=== PATIENT | male | born 1995 | race Caucasian/White ===

== ENCOUNTER 2017-04-24 23:27 | Emergency (ER) | payer BC ==
[2017-04-24 23:34] VITALS: BP 141/89
[2017-04-25] MEDS ORDERED: Dexamethasone TAB* 4 MG PO ONE (00:50)
[2017-04-25] MEDS ORDERED: oxyCODONE/Acetamin 5/325 MG* TAB PO ONE (00:50)
[2017-04-25] MEDS ORDERED: Cyclobenzaprine TAB* 10 MG PO ONE (00:50)
--- NOTE | 2017-04-25 01:59 | ED ---
Back Pain - HPI Summary HPI Summary: 21-year-old male presents with back pain for the past day. He denies any injury. He denies any fever. Denies any pain or weakness into his legs. He denies any numbness or tingling. Denies any saddle anesthesia or loss of bowel or bladder. He has been taking ibuprofen without relief. He has history of back pain similar location. He states he has been working out more. He has not seen anyone else for this. He states that with positional changes and makes the pain worse. He admits to muscle spasms. - History of Current Complaint Chief Complaint: EDBackInjuryPain Stated Complaint: BACK INJURY Time Seen by Provider: 04/25/17 00:23 Pain Intensity: 9 - Allergies/Home Medications Allergies/Adverse Reactions: Allergies Allergy/AdvReac Type Severity Reaction Status Date / Time No Known Allergies Allergy Unverified 05/11/12 14:19 PMH/Surg Hx/FS Hx/Imm Hx Endocrine/Hematology History: Denies: Hx Anticoagulant Therapy Cardiovascular History: Denies: Hx Pacemaker/ICD Neurological History: Reports: Other Neuro Impairments/Disorders - RECURRENT CONCUSSIONS, CHANGE IN MENTAL STATUS, UNABLE TO CONCENTRATE Psychiatric History: Denies: Hx Panic Disorder - Surgical History Surgery Procedure, Year, and Place: TESTICULAR HYDROCELE AGE 1 Infectious Disease History: No Infectious Disease History: Denies: Traveled Outside the [place] in Last 30 Days - Family History Known Family History: Positive: Hypertension - Social History Alcohol Use: Rare Substance Use Type: Reports: None Smoking Status (MU): Never Smoked Tobacco Review of Systems Negative: Fever Negative: Chest Pain Negative: Shortness Of Breath Positive: Myalgia - back pain All Other Systems Reviewed And Are Negative: Yes Physical Exam Triage Information Reviewed: Yes Vital Signs On Initial Exam: Initial Vitals Temp Pulse Resp BP Pulse Ox 99.2 F 80 20 141/89 99 04/24/17 23:29 04/24/17 23:29 04/24/17 23:29 04/24/17 23:29 04/24/17 23:29 Vital Signs Reviewed: Yes Appearance: Positive: Pain Distress Skin: Positive: Warm, Dry Head/Face: Positive: Normal Head/Face Inspection Eyes: Positive: Normal, Conjunctiva Clear Respiratory/Lung Sounds: Positive: Clear to Auscultation, Breath Sounds Present Cardiovascular: Positive: Normal, RRR Musculoskeletal: Positive: Limited @ - back, Other - Tenderness lower back, negative straight legs, good pulses, sensation grossly intact Neurological: Positive: Normal Psychiatric: Positive: Normal Diagnostics - Vital Signs Vital Signs Temp Pulse Resp BP Pulse Ox 04/25/17 01:09 16 04/24/17 23:29 99.2 F 80 20 141/89 99 - Laboratory Lab Statement: Any lab studies that have been ordered have been reviewed, and results considered in the medical decision making process. - Radiology back Xray Interpretation: No Acute Changes Radiology Interpretation Completed By: ED Physician Back Pain Course/Dx - Course Course Of Treatment: 21-year-old male presents with back pain for the past day. He denies any injury. He denies any fever. Denies any pain or weakness into his legs. He denies any numbness or tingling. Denies any saddle anesthesia or loss of bowel or bladder. He has been taking ibuprofen without relief. He has history of back pain similar location. He states he has been working out more. He has not seen anyone else for this. He states that with positional changes and makes the pain worse. He admits to muscle spasms. On exam tenderness lower back. Negative straight leg raise. Neurovascularly intact. X-ray read by me as normal. Gave muscle relaxer steroid and Percocet and feeling better here. We'll give muscle relaxer and steroid to go. We'll have follow-up with primary. Patient understands and agrees plan. - Diagnoses Differential Diagnosis/HQI/PQRI: Positive: Herniated Disc, Strain, Sprain Provider Diagnoses: Back pain Discharge - Discharge Plan Condition: Good Disposition: HOME Prescriptions: Cyclobenzaprine TAB* [Flexeril 10 MG TAB*] 10 mg PO TID PRN #21 tab PRN Reason: Pain methylPREDNISolone [Medrol Dosepak 4 MG*] 4 mg PO .SEE STEFANY INSTRUCTION #1 packet Patient Education Materials: Back Pain (ED) Referrals: Will Bryant MD [Primary Care Provider] - [facility] [Outside] Additional Instructions: Follow directions on package for Medrol pack Take muscle relaxers three times a day Use ibuprofen or Tylenol for pain every 6 hours ice/heat area, move as much as possible Follow up with primary Return to ED if develop any new or worsening symptoms
--- NOTE | 2017-04-25 08:00 | RAD ---
HISTORY: Back pain COMPARISONS: None VIEWS: 5 , Frontal, lateral, coned-down lateral sacral, and bilateral oblique views of the lumbar spine. FINDINGS: ALIGNMENT: There is a mild scoliotic curvature of the spine. VERTEBRAL BODIES: There are bilateral pars defects at L5 JOINTS: The facet joints are normal. INTERVERTEBRAL DISCS: The intervertebral disc heights are normal. SOFT TISSUE: Unremarkable. OTHER: The pelvis is unremarkable. The lung bases are clear. IMPRESSION: 1. SPONDYLOLYSIS AT L5 2. MILD SCOLIOSIS.
== END 2017-04-25 02:30 | disposition home or self-care (01) ==
LOC: ED 23:27
DX: M54.9 Dorsalgia, unspecified (principal); M43.00 Spondylolysis, site unspecified
CPT/HCPCS: 72110; 99282; A9270-GY; J8540

== ENCOUNTER → 2018-03-05 20:56 | Emergency (ER) | payer BC, OTHER ==
[~2018-03-05 20:56] MED LIST: Ibuprofen TAB* 800 MG PO ONE; oxyCODONE TAB* 5 MG TAB ONE; oxyCODONE TAB* 5 MG TAB PO ONE
--- NOTE | 2018-03-05 21:55 | ED ---
Lower Extremity - HPI Summary HPI Summary: Patient complains of left ankle pain status post mechanical fall on the ice tonight. States 8/10 pain. Denies any other pain, injury, symptoms. Denies having taken any medications for pain. Denies EtOH, recreational drug use. Medical history is none. - History of Current Complaint Chief Complaint: EDExtremityLower Stated Complaint: LEFT ANKLE INJURY Time Seen by Provider: 03/05/18 21:22 Hx Obtained From: Patient Mechanism Of Injury: Fall From A Standing Position Onset of Pain: Immediate Onset/Duration: Hours Severity Initially: Severe Severity Currently: Severe Pain Intensity: 9 Pain Scale Used: 0-10 Numeric Timing: Constant Location: Is Discrete @ Character Of Pain: Aching, Throbbing Associated Signs And Symptoms: Positive: Swelling Aggravating Factor(s): Standing, Ambulation, Movement, Weight Bearing Alleviating Factor(s): Rest, Elevation Able to Bear Weight: No - Allergies/Home Medications Allergies/Adverse Reactions: Allergies Allergy/AdvReac Type Severity Reaction Status Date / Time No Known Allergies Allergy Verified 03/05/18 21:00 PMH/Surg Hx/FS Hx/Imm Hx Endocrine/Hematology History: Denies: Hx Anticoagulant Therapy Cardiovascular History: Denies: Hx Pacemaker/ICD History: Denies: Hx Dialysis Sensory History: Denies: Hx Eye Prosthesis EENT History: Denies: Hx Deafness Neurological History: Reports: Other Neuro Impairments/Disorders - RECURRENT CONCUSSIONS, CHANGE IN MENTAL STATUS, UNABLE TO CONCENTRATE Denies: Hx Developmental Delay Psychiatric History: Denies: Hx Panic Disorder - Surgical History Surgery Procedure, Year, and Place: TESTICULAR HYDROCELE AGE 1 Infectious Disease History: No Infectious Disease History: Denies: Traveled Outside the [place] in Last 30 Days - Family History Known Family History: Positive: Hypertension - Social History Alcohol Use: Weekly Substance Use Type: Reports: None Smoking Status (MU): Never Smoked Tobacco Review of Systems Constitutional: Negative Eyes: Negative ENT: Negative Cardiovascular: Negative Respiratory: Negative Gastrointestinal: Negative Genitourinary: Negative Musculoskeletal: Other Skin: Negative Neurological: Negative Psychological: Normal All Other Systems Reviewed And Are Negative: Yes Physical Exam - Summary Physical Exam Summary: Swelling and deformity to left ankle laterally and medially. PMS intact distally. No pain with palpation of the foot. Nontender. No pain with palpation of knee. Triage Information Reviewed: Yes Vital Signs On Initial Exam: Initial Vitals Temp Pulse Resp BP Pulse Ox 99 F 86 16 154/92 99 03/05/18 20:58 03/05/18 20:58 03/05/18 20:58 03/05/18 20:58 03/05/18 20:58 Vital Signs Reviewed: Yes Appearance: Positive: Well-Appearing Skin: Positive: Warm Head/Face: Positive: Normal Head/Face Inspection Eyes: Positive: Normal Neck: Positive: Supple Respiratory/Lung Sounds: Positive: Clear to Auscultation Cardiovascular: Positive: Normal Abdomen Description: Positive: Nontender Musculoskeletal: Positive: Normal Neurological: Positive: Normal Psychiatric: Positive: Normal AVPU Assessment: Alert - Alyssa Coma Scale Best Eye Response: 4 - Spontaneous Best Motor Response: 6 - Obeys Commands Best Verbal Response: 5 - Oriented Coma Scale Total: 15 Procedures - Splinting 1 Location: left ankle Hand-Made Type: fiberglass Splint: posterior walking with sugar tong Pre-Proc Neuro Vasc Exam: normal Post-Proc Neuro Vasc Exam: normal Diagnostics - Vital Signs Vital Signs Temp Pulse Resp BP Pulse Ox 03/05/18 20:58 99 F 86 16 154/92 99 - Laboratory Lab Statement: Any lab studies that have been ordered have been reviewed, and results considered in the medical decision making process. Lower Extremity Course/Dx - Course Course Of Treatment: Patient complains of left ankle pain status post mechanical fall on the ice tonight. States 8/10 pain. Denies any other pain, injury, symptoms. Denies having taken any medications for pain. Denies EtOH, recreational drug use. Medical history is none. Physical exam:Swelling and deformity to left ankle laterally and medially. PMS intact distally. No pain with palpation of the foot. Nontender. No pain with palpation of knee. Vital signs within normal limits. X-ray positive for medial malleolus fracture and distal fibular fracture. Posterior walking splint with stirrup applied. Crutches. Rx for hydrocodone. Follow-up with orthopedics. - Diagnoses Provider Diagnoses: Medial malleolar fracture, Fracture of distal end of fibula Discharge - Sign-Out/Discharge Documenting (check all that apply): Patient Departure - Discharge Plan Condition: Stable Disposition: HOME Prescriptions: HYDROcodone/ACETAMIN 5-325 MG* [[place] 5-325 TAB*] 1 tab PO TID 3 Days #9 tab MDD 3 tabs Patient Education Materials: Ankle Fracture (ED) Referrals: Will Bryant MD [Primary Care Provider] - Arturo Rowley MD [Medical Doctor] - Additional Instructions: Take ibuprofen 600 mg up to 4 times a day with prescription pain medication. Rest, ice, elevation. Tomorrow call clinic of orthopedics Dr. Woo to arrange appointment for further evaluation of ankle fracture. Return to the ED for any new or worsening symptoms. - Billing Disposition and Condition Condition: STABLE Disposition: Home
[2018-03-05 22:26] VITALS: BP 139/95
--- NOTE | 2018-03-06 10:29 | PN ---
Progress Note - Progress Note Date of Service: 03/05/18 Note: Pt. seen in ED last night and dx with bimalleolar ankle fx. He was splinted and referred to ortho. Final radiology read today shows a trimalleolar fx. No change in treatment at this time.
== END | disposition home or self-care (01) ==
LOC: ED 20:56
DX: S82.55XA Nondisplaced fracture of medial malleolus of left tibia, initial encounter for closed fracture (principal); S82.832A Other fracture of upper and lower end of left fibula, initial encounter for closed fracture; W00.9XXA Unspecified fall due to ice and snow, initial encounter; Y92.9 Unspecified place or not applicable
CPT/HCPCS: 99282; A9270-GY

== ENCOUNTER 2018-12-11 11:47 | Emergency (ER) | payer BC, OTHER ==
--- OUTSIDE RECORDS SUMMARY | 2018-12-11 11:53 | XMS REPORT | Continuity of Care Document ---
:1995 External Reference #:[id number] Author Name Arturo Rowley MD (transmitted by agent of provider Mohini Tamayo) Address [address] [place] [id number] Care Team Providers Name Role Phone Sammi Ashton MD - Internal Medicine Care Team Information Expense Analyst Problems Active Problems Provider Date Closed trimalleolar fracture Arturo Rowley MD Onset: 03/06/2018 Social History Type Date Description Comments Sex Unknown ETOH Use Currently consumes alcohol 10 drinks/.week Tobacco Use Start: Unknown Chewing tobacco-When stressed Smoking Status Reviewed: 10/13/18 Chewing tobacco-When stressed Allergies, Adverse Reactions, Alerts Description No Known Drug Allergies Medications Active Medications SIG Qnty Indications Ordering Provider Date Escitalopram Oxalate 1/2 tab once 90tabs F41.9 Gaurav Antonio NP 05/24/2018 daily for 1 week 10mg Tablets then increase to 1 tab daily. Ibuprofen Unknown Immunizations Description No Information Available Vital Signs Date Vital Result Comment 10/13/2018 8:47am Height 72 inches 6'0" Weight 220.00 lb Heart Rate 56 /min BP Systolic 124 mmHg BP Diastolic 78 mmHg Body Temperature 97.7 F Pain Level 1 BMI (Body Mass Index) 29.8 kg/m2 06/09/2018 10:12am Height 72 inches 6'0" Weight 220.00 lb Heart Rate 78 /min BP Systolic 120 mmHg BP Diastolic 70 mmHg Respiratory Rate 14 /min Pain Level 0 BMI (Body Mass Index) 29.8 kg/m2 Results Description No Information Available Procedures Description No Information Available Medical Devices Description No Information Available Encounters Type Date Location Provider Dx Diagnosis Office Visit 06/09/2018 Orthopedic Arturo Rowley, S82.852D Displ trimalleol 10:15a [facility] fx l low leg, subs for clos fx w routn heal Office Visit 05/24/2018 [facility]assembly Supervisor Internal Gaurav Antonio NP F41.9 Anxiety disorder , 10:20a Medicine - [facility] unspecified Z13.220 Encounter for screening for lipoid disorders Assessments Date Code Description Provider 10/13/2018 S82.852D Displaced trimalleolar fracture of left lower Arturo Rowley MD leg, subsequen 06/09/2018 S82.852D Displaced trimalleolar fracture of left lower Arturo Rowley MD leg, subsequen 05/24/2018 F41.9 Anxiety disorder, unspecified Gaurav Antonio, KELECHI 05/24/2018 Z13.220 Encounter for screening for lipoid disorders Gaurav Antonio NP 05/15/2018 S82.852D Displaced trimalleolar fracture of left lower Arturo Rowley MD leg, subsequen 05/15/2018 S82.852D Displaced trimalleolar fracture of left lower Arturo Rowley MD leg, subsequent encounter for closed fracture with routine healing 04/18/2018 S82.852D Displaced trimalleolar fracture of left lower Arturo Rowley MD leg, subsequen 04/18/2018 S82.852D Displaced trimalleolar fracture of left lower Arturo Rowley MD leg, subsequent encounter for closed fracture with routine healing Plan of Treatment 10/13/2018 - [facility] Ko82.852D Displaced trimalleolar fracture of left lower leg, subsequenFollow up:As needed Functional Status Description No Information Available Mental Status Description No Information Available Referrals Description No Information Available
[2018-12-11 11:55] VITALS: BP 136/87
--- NOTE | 2018-12-11 12:35 | UC ---
Throat Pain/Nasal [place] HPI - HPI Summary HPI Summary: 23-year-old male presents with 3 day history of sore throat. Reports subjective fever and chills. Had 1 episode of vomiting the first day of symptoms. Denies ear pain, nasal congestion, dysphagia, or cough. - History of Current Complaint Chief Complaint: UCRespiratory Stated Complaint: SORE THROAT Time Seen by Provider: 12/11/18 12:18 Hx Obtained From: Patient Pain Intensity: 6 - Allergies/Home Medications Allergies/Adverse Reactions: Allergies Allergy/AdvReac Type Severity Reaction Status Date / Time No Known Allergies Allergy Verified 12/11/18 11:55 Home Medications: Home Medications Dm/PE/Acetaminophen/Doxylamine [Vicks Dayquil-Nyquil Cold-Flu] 1 tab PO ONCE PRN 12/11/18 [History Confirmed 12/11/18] PMH/Surg Hx/FS Hx/Imm Hx Previously Healthy: Yes - Denies significant PMH Other History Of: Negative For: Anticoagulant Therapy - Surgical History Surgical History: Yes Surgery Procedure, Year, and Place: TESTICULAR HYDROCELE AGE 1. ankle surgery - Family History Known Family History: Positive: Hypertension - Social History Alcohol Use: Weekly Substance Use Type: None Smoking Status (MU): Smoker, Current Status Unknown Amount Used/How Often: chew tobacco Review of Systems All Other Systems Reviewed And Are Negative: Yes Constitutional: Positive: Fever, Chills Skin: Negative: Rash Eyes: Negative: Drainage, Eye Redness ENT: Positive: Sore Throat Respiratory: Negative: Cough Cardiovascular: Positive: Negative Gastrointestinal: Positive: Vomiting. Negative: Abdominal Pain, Diarrhea, Nausea Genitourinary: Positive: Negative Musculoskeletal: Positive: Negative Neurological: Positive: Negative Is Patient Immunocompromised?: No Physical Exam - Summary Physical Exam Summary: GENERAL APPEARANCE: Well developed, well nourished, alert and cooperative, and appears to be in no acute distress. EYES: Conjunctiva clear. No drainage. EARS: External auditory canals and tympanic membranes clear, hearing grossly intact. NOSE: No nasal discharge. THROAT: Pharyngeal erythema. 2+ tonsils without exudate. Uvula midline. NECK: Neck supple, non-tender without lymphadenopathy. CARDIAC: Normal S1 and S2. No S3, S4 or murmurs. Rhythm is regular. There is no peripheral edema, cyanosis or pallor. Extremities are warm and well perfused. Capillary refill is less than 2 seconds. Peripheral pulses intact. LUNGS: Clear to auscultation without rales, rhonchi, wheezing or diminished breath sounds. ABDOMEN: Positive bowel sounds. Soft, nondistended, nontender. No guarding or rebound. No masses or hepatosplenomegally. MUSKULOSKELETAL: ROM intact to all extremities. No joint erythema or tenderness. Normal muscular development. Normal gait. SKIN: Skin normal color, texture and turgor with no lesions or eruptions. Triage Information Reviewed: Yes Vital Signs: Initial Vital Signs Temp 98 F 12/11/18 11:52 Pulse 84 12/11/18 11:52 Resp 18 12/11/18 11:52 BP 136/87 12/11/18 11:52 Pulse Ox 100 12/11/18 11:52 Vital Signs Reviewed: Yes Throat Pain/Nasal Course/Dx - Course Course Of Treatment: 23-year-old male presents with 3 day history of sore throat. Reports subjective fever and chills. Had 1 episode of vomiting the first day of symptoms. Denies ear pain, nasal congestion, dysphagia, or cough. Afebrile. Vital signs stable. Patient had pharyngeal erythema, 2+ tonsils without exudate, no cervical lymphadenopathy, and otherwise unremarkable exam. Rapid strep test negative. Reviewed results with patient. Recommending conservative treatment for acute viral pharyngitis. He is to follow up with his PCP in 3-5 days if no improvement in symptoms. Anticipatory guidance and warning symptoms reviewed with patient. Verbalizes understanding and agrees with POC. - Differential Dx/Diagnosis Differential Diagnosis/HQI/PQRI: Mononucleosis, Pharyngitis, Tonsillitis, URI Provider Diagnosis: Acute viral pharyngitis Discharge ED - Sign-Out/Discharge Documenting (check all that apply): Patient Departure All imaging exams completed and their final reports reviewed: No Studies - Discharge Plan Condition: Stable Disposition: HOME Patient Education Materials: Pharyngitis (ED) Referrals: Gaurav Antonio NP [Primary Care Provider] - 3 Days Additional Instructions: Your rapid strep test in the clinic today was negative. Your symptoms are likely from a viral infection. Viral infections do not respond to antibiotics and are limited to the treatment of symptoms. Viral infections typically run their course in 7-10 days. Drink plenty of fluids to avoid dehydration especially if you are running any fever. Use salt water gargles several times a day. Take over the counter acetaminophen (Tylenol) or ibuprofen (Advil, Motrin) according to directions as needed for pain or fever. You may also use Chloraseptic spray or Cepacol lonzenges according to directions which contain a numbing medication and can provide some temporary relief from your sore throat. Return here or follow up with your primary care provider in 3-5 days if symptoms persist. Seek immediate medical attention in the emergency room if you have fever greater than 100.5 F despite taking acetaminophen or ibuprofen, are unable to swallow or develop drooling, are unable to open your mouth fully, are unable to eat or drink, have pain that is not relieved with over the counter pain medication, or have any difficulty breathing. - Billing Disposition and Condition Condition: STABLE Disposition: Home
== END 2018-12-11 12:41 | disposition home or self-care (01) ==
LOC: UCEAST 11:47
DX: J02.9 Acute pharyngitis, unspecified (principal); R11.10 Vomiting, unspecified; F17.200 Nicotine dependence, unspecified, uncomplicated
CPT/HCPCS: 87651; 99211; G0463